=== PATIENT | female | born 1970 | race Caucasian/White ===

== ENCOUNTER → 2019-07-08 | Outpatient (CLI) | payer OTHER ==
--- NOTE | 2019-07-08 15:48 | NM ---
EXAMINATION TYPE: NM hepatobiliary w EF DATE OF EXAM: 07/08/2019 COMPARISON: None HISTORY: Right upper quadrant pain TECHNIQUE: After the intravenous administration of 3.08 mCi Tc 99m Mebrofenin hepatobiliary scintigra phy is performed. Immediate images post injection. FINDINGS: There is satisfactory initial accumulation of tracer by the liver. The gallbladder is visualized wit hin 6 minutes. The small bowel activity is noted within 52 minutes. At one hour 8 ounces of oral en sure plus is given to mimic CCK and gallbladder ejection fraction is calculated at 22 %, in the missael l range. Therefore there is no scintigraphic evidence of cystic or common bile duct obstruction to s uggest acute cholecystitis or gallbladder dyskinesia. IMPRESSION: Exam is within normal limits.
== END | disposition home or self-care (01) ==
LOC: RADNMMAIN 12:35
PROVIDERS: ATTEND Family Medicine
DX: R10.11 Right upper quadrant pain (principal)
CPT/HCPCS: 78226; A9537

== ENCOUNTER 2021-07-17 10:31 | Observation (INO) | payer OTHER ==
[2021-07-17 11:22] LABS: Basophils # (A) 0.1 k/uL (0-0.2); Basophils % (A) 1 %; Eosinophils # (A) 0.3 k/uL (0-0.7); Eosinophils % (A) 4 %; HGB 13.6 gm/dL (11.4-16.0); Lymphocytes # (A) 2.3 k/uL (1.0-4.8); Lymphocytes % (A) 36 %; MCH 29.8 pg (25.0-35.0); MCHC 31.7 g/dL (31.0-37.0); MCV 94.2 fL (80.0-100.0); Mean Platelet Volume 7.4; Monocytes # (A) 0.4 k/uL (0-1.0); Monocytes % (A) 6 %; Neutrophils # (A) 3.2 k/uL (1.3-7.7); Neutrophils % (A) 50 %; Platelet Count 335 k/uL (150-450); RBC 4.56 m/uL (3.80-5.40); RDW 12.4 % (11.5-15.5); WBC 6.5 k/uL (3.8-10.6)
[2021-07-17] MEDS ORDERED: ASPIRIN 81 MG PO STA (11:28)
--- NOTE | 2021-07-17 11:29 | ED ---
General Adult HPI - General Chief complaint: Chest Pain Stated complaint: Chest Pain Time Seen by Provider: 07/17/21 10:44 Source: patient Mode of arrival: wheelchair Limitations: no limitations - History of Present Illness Initial comments: Dictation was produced using [employer] dictation software. please excuse any grammatical, word or spelling errors. Chief Complaint: 50-year-old female with extensive family history of cardiac disease presents to the emergency department for chest pain History of Present Illness: 50-year-old female she presents emergency department for 3 days of chest pressure. Patient states that over the last few days she had a pressure in her chest that radiated to her back. No numbness and paresthesias to the extremities. Patient denies any history of blood clot. Denies any calf tenderness. She does complain of shortness of breath. 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 Patient denies any relation to her jaw. No associated nausea. She takes has extensive family history of cardiac disease. Mother was diagnosed with coronary artery disease and heart conditions at around the same age as the patient. She denies any symptoms at this time. The ROS documented in this emergency department record has been reviewed and confirmed by me. Those systems with pertinent positive or negative responses have been documented in the HPI. All other systems are other negative and/or noncontributory. PHYSICAL EXAM: General Impression: Alert and oriented x3, not in acute distress HEENT: Normocephalic atraumatic, extra-ocular movements intact, pupils equal and reactive to light bilaterally, mucous membranes moist. Cardiovascular: Heart regular rate and rhythm Chest: Able to complete full sentences, no retractions, no tachypnea Abdomen: abdomen soft, non-tender, non-distended, no organomegaly Musculoskeletal: Pulses present and equal in all extremities, no peripheral edema Motor: no focal deficits noted Neurological: CN II-XII grossly intact, no focal motor or sensory deficits noted Skin: Intact with no visualized rashes Psych: Normal affect and mood ED course: 50-year-old female presents to the emergency department for chest pressure concerning for ACS. Vital signs upon arrival are within acceptable limits. Patient is high risk due to family history. EKG shows no ischemia but does show right bundle branch block. No old EKG for comparison. Patient is asymptomatic at the bedside. Laboratory evaluation obtained. CBC is unremarkable. Coag panel is negative. D-dimer is below the age-adjusted level. Metabolic panel and first troponin is negative. Chest x-ray is nonacute. Patient remained at bedside at 1:30 PM vitamin stable medical condition. Patient is high risk due to strong family history. Patient is agreeable for admission for suture troponins, cardiac monitoring and cardiology consultation. Patient will be admitted to Dr. Bill's service. EKG interpretation: Ventricular rate 67, sinus rhythm, right bundle branch bloc k,. 129, QRS 127, QTc 444. No IN prolongation, no QTC prolongation, no ST or T- wave changes noted. . Overall, this EKG is unremarkable - Related Data Allergies Allergy/AdvReac Type Severity Reaction Status Date / Time No Known Allergies Allergy Verified 07/17/21 10:43 Review of Systems ROS Statement: Those systems with pertinent positive or pertinent negative responses have been documented in the HPI. ROS Other: All systems not noted in ROS Statement are negative. Past Medical History Additional Past Medical History / Comment(s): migraine History of Any Multi-Drug Resistant Organisms: None Reported Past Surgical History: Hysterectomy, Orthopedic Surgery Past Psychological History: No Psychological Hx Reported Smoking Status: Never smoker Past Alcohol Use History: Occasional Past Drug Use History: None Reported General Exam Limitations: no limitations Course Vital Signs 07/17/21 07/17/21 07/17/21 10:41 11:00 13:00 Temperature 97.9 F Pulse Rate 70 68 72 Respiratory 16 18 18 Rate Blood Pressure 139/84 140/90 142/92 O2 Sat by Pulse 100 99 97 Oximetry Medical Decision Making - Lab Data Result diagrams: 07/17/21 11:13 07/17/21 11:37 Lab Results 07/17/21 07/17/21 07/17/21 Range/Units 11:13 11:13 11:37 WBC 6.5 (3.8-10.6) k/uL RBC 4.56 (3.80-5.40) m/uL Hgb 13.6 (11.4-16.0) gm/dL Hct 43.0 (34.0-46.0) % MCV 94.2 (80.0-100.0) fL MCH 29.8 (25.0-35.0) pg MCHC 31.7 (31.0-37.0) g/dL RDW 12.4 (11.5-15.5) % Plt Count 335 (150-450) k/uL MPV 7.4 Neutrophils % 50 % Lymphocytes % 36 % Monocytes % 6 % Eosinophils % 4 % Basophils % 1 % Neutrophils # 3.2 (1.3-7.7) k/uL Lymphocytes # 2.3 (1.0-4.8) k/uL Monocytes # 0.4 (0-1.0) k/uL Eosinophils # 0.3 (0-0.7) k/uL Basophils # 0.1 (0-0.2) k/uL PT 9.9 (9.0-12.0) sec INR 0.9 (<1.2) APTT 23.1 (22.0-30.0) sec D-Dimer 0.20 (<0.60) mg/L FEU Sodium (137-145) mmol/L Potassium (3.5-5.1) mmol/L Chloride (98-107) mmol/L Carbon Dioxide (22-30) mmol/L Anion Gap mmol/L BUN (7-17) mg/dL Creatinine (0.52-1.04) mg/dL Est GFR (CKD-EPI)AfAm (>60 ml/min/1.73 sqM) Est GFR (CKD-EPI)NonAf (>60 ml/min/1.73 sqM) Glucose (74-99) mg/dL Calcium (8.4-10.2) mg/dL Troponin I <0.012 (0.000-0.034) ng/mL 07/17/21 Range/Units 11:37 WBC (3.8-10.6) k/uL RBC (3.80-5.40) m/uL Hgb (11.4-16.0) gm/dL Hct (34.0-46.0) % MCV (80.0-100.0) fL MCH (25.0-35.0) pg MCHC (31.0-37.0) g/dL RDW (11.5-15.5) % Plt Count (150-450) k/uL MPV Neutrophils % % Lymphocytes % % Monocytes % % Eosinophils % % Basophils % % Neutrophils # (1.3-7.7) k/uL Lymphocytes # (1.0-4.8) k/uL Monocytes # (0-1.0) k/uL Eosinophils # (0-0.7) k/uL Basophils # (0-0.2) k/uL PT (9.0-12.0) sec INR (<1.2) APTT (22.0-30.0) sec D-Dimer (<0.60) mg/L FEU Sodium 139 (137-145) mmol/L Potassium 4.1 (3.5-5.1) mmol/L Chloride 105 (98-107) mmol/L Carbon Dioxide 26 (22-30) mmol/L Anion Gap 8 mmol/L BUN 9 (7-17) mg/dL Creatinine 0.68 (0.52-1.04) mg/dL Est GFR (CKD-EPI)AfAm >90 (>60 ml/min/1.73 sqM) Est GFR (CKD-EPI)NonAf >90 (>60 ml/min/1.73 sqM) Glucose 101 H (74-99) mg/dL Calcium 8.9 (8.4-10.2) mg/dL Troponin I (0.000-0.034) ng/mL Disposition Clinical Impression: Chest pain Disposition: ADMITTED IP TO THIS HOSP Condition: Fair Referrals: Ayan Valle MD [Primary Care Provider] - 1-2 days
--- NOTE | 2021-07-17 11:42 | XR ---
EXAMINATION TYPE: XR chest 1V portable DATE OF EXAM: 07/17/2021 COMPARISON: NONE HISTORY: Chest pain TECHNIQUE: Single frontal view of the chest is obtained. FINDINGS: There is no focal air space opacity, pleural effusion, or pneumothorax seen. The cardiac silhouette size is within normal limits. The osseous structures are intact. IMPRESSION: No acute process.
[2021-07-17 11:58] LABS: African American GFR (CKD) >90 (>60 ml/min/1.73 sqM); Anion Gap 8 mmol/L; Blood Urea Nitrogen 9 mg/dL (7-17); Calcium 8.9 mg/dL (8.4-10.2); Carbon Dioxide 26 mmol/L (22-30); Chloride 105 mmol/L (98-107); Glucose 101 mg/dL (74-99); Non-African American GFR(CKD) >90 (>60 ml/min/1.73 sqM); Potassium 4.1 mmol/L (3.5-5.1); Sodium 139 mmol/L (137-145)
[2021-07-17 12:10] LABS: INR 0.9 (<1.2); Partial Thromboplastin Time 23.1 sec (22.0-30.0); Prothrombin Time 9.9 sec (9.0-12.0)
[2021-07-17] MEDS ORDERED: NITROGLYCERIN SL TABS 0.4 MG TAB SUBLINGUAL PRN (13:33)
--- NOTE | 2021-07-17 17:13 | P.HPIM ---
History of Present Illness H&P Date: 07/17/21 Chief Complaint: Chest pressure This is a 50-year-old patient, follows with Dr. Ayan Valle. Patient's premature good health. Rather active. 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 Patient for last 40 days been having pain across the chest. Mainly with activity. Feels like a pressure. But at rest. Does not radiate anywhere. Some associated shortness of breath. No dizziness no lightheadedness. Does feel tired all the time. No lower extremity. No cough no fever no chills. No prior cardiac history. Has a cardiac history has decided to come in. Patient is on a beta jay for headaches described as possible migraines. Review of systems: GEN.: None EYES: None HEENT: None NECK: None RESPIRATORY: None CARDIOVASCULAR: As above GASTROINTESTINAL: None GENITOURINARY: None MUSCULOSKELETAL: None LYMPHATICS: None HEMATOLOGICAL: None PSYCHIATRY: None NEUROLOGICAL: None Past medical history to include: Migraine Social history: . Alcohol occasionally. No smoking. No recreational drugs. Family history: CAD Physical examination: VITAL SIGNS: 97.9, 76, 16, 116/72, 98% room air GENERAL: BMI 32.6 reclining bed, awake, not in distress. EYES: Pupils equal. Conjunctiva normal. HEENT: External appearance of nose and ears normal, oral cavity grossly normal. NECK: JVD not raised; masses not palpable. HEART: First and second heart sounds are normal; no edema. LUNGS: Respiratory rate normal; clear to auscultation. ABDOMEN: Soft, nontender, liver spleen not palpable, no masses palpable. PSYCH: Alert and oriented x3; mood and affect normal. MUSCULOSKELETAL:No Clubbing/cyanosis;muscles-grossly intact NEUROLOGICAL: Cranial nerves grossly intact; no facial asymmetry, power and sensation grossly intact. LYMPHATICS: No lymph nodes palpable in the axilla and neck INVESTIGATIONS, reviewed in the clinical context: White count 6.5 hemoglobin 13.6 platelets 335 sodium 139 potassium 4.1 BUN 9 creatinine 0.68 Troponin I is less than 0.012 EKG tracing personally reviewed by me-right bundle-branch block. Sinus rhythm Chest x-ray film personally reviewed by me-lungs clear. Assessment and plan: -Anterior chest wall pain with some cardiac features. Positive family history. Negative troponin. EKG nonspecific. Patient will need a stress test. Currently consulted. Aspirin. -Right bundle-branch block -Obesity BMI 32.6 Patient placement aspirin. Telemetry. Cardiology consulted. Care was discussed with the patient has been the bedside. Questions answered. Past Medical History Additional Past Medical History / Comment(s): migraine History of Any Multi-Drug Resistant Organisms: None Reported Past Surgical History: Hysterectomy, Orthopedic Surgery Past Psychological History: No Psychological Hx Reported Smoking Status: Never smoker Past Alcohol Use History: Occasional Past Drug Use History: None Reported Medications and Allergies Home Medications Medication Instructions Recorded Confirmed Type Propranolol HCl 80 mg PO DAILY 07/17/21 07/17/21 History Allergies Allergy/AdvReac Type Severity Reaction Status Date / Time No Known Allergies Allergy Verified 07/17/21 13:41 Physical Exam Vitals: Vital Signs Temp Pulse Resp BP Pulse Ox 07/17/21 16:45 76 16 116/72 98 07/17/21 13:00 72 18 142/92 97 07/17/21 11:00 68 18 140/90 99 07/17/21 10:41 97.9 F 70 16 139/84 100 Intake and Output 07/17/21 07/17/21 07/17/21 06:59 14:59 22:59 Other: Weight 86.183 kg Results CBC & Chem 7: 07/17/21 11:13 07/17/21 11:37 Labs: Abnormal Lab Results - Last 24 Hours (Table) 07/17/21 Range/Units 11:37 Glucose 101 H (74-99) mg/dL
[2021-07-17 17:24] VITALS: RESP 18
[2021-07-18 07:19] VITALS: BP 114/69; PULSE 71; TEMP 97.6
[2021-07-18] MEDS ORDERED: ASPIRIN 325 MG TAB PO SCH (09:00)
--- NOTE | 2021-07-18 09:42 | P.CRDCN ---
History of Present Illness History of present illness: HISTORY OF PRESENTING ILLNESS This is a pleasant 50-year-old female past medical history significant for migraines, significant family history of coronary artery disease. She does not follow with cuff knitter. We have been asked to see in consultation for chest pain. Patient presents emergency department with complaints of midsternal chest heaviness and pain since 07/14/21. Exertional and aggravated by activity. Radiating to her back in between her shoulder blades. She states it would last a few hours and would be relived with rest. She had associated shortness of breath and some lightheadedness. She denies any nausea, vomiting, diaphoresis, palpitations. She denies any syncope or near syncope. She denies any symptoms of orthopnea or PND. Denies history of CAD, NC, Stroke, Diabetes or hypertension or hyperlipidemia. She is a non/never smoker. Family history includes maternal and paternal grandparents both with MIs in 60-70s, Mother with valve abnormalities. She states she has never had a stress test in the past. DIAGNOSTICS EKG reveals sinus rhythm, heart rate 67, right bundle-branch block, T wave inversion in lead III. No prior EKG to compare. EKG this morning with similar findings Telemetry tracings indicate sinus rhythm heart rate in the 60s Chest xray no acute cardio pulmonary process Laboratory reviewed, troponin negative 3, d-dimer negative, CBC unremarkable, sodium 139, potassium 4.1, BUN 9, serum creatinine 0.6 Current home medications include propanolol 80 mg daily that she takes for migraines REVIEW OF SYSTEMS At the time of my exam: CONSTITUTIONAL: Denies fever or chills. CARDIOVASCULAR: Denies chest pain, shortness of breath, orthopnea, PND or palpitations. RESPIRATORY: Denies cough. GASTROINTESTINAL: Denies abdominal pain, diarrhea, constipation, nausea or vomiting. MUSCULOSKELETAL: Denies myalgias. NEUROLOGIC: Denies numbness, tingling, headache or weakness. ENDOCRINE: Denies fatigue, weight change, polydipsia or polyurina. GENITOURINARY: Denies burning, hematuria or urgency with micturation. HEMATOLOGIC: Denies history of anemia or bleeding. PHYSICAL EXAMINATION Blood pressure 114/69, heart rate 71, afebrile, saturation 97% on room air CONSTITUTIONAL: No apparent distress. HEENT: Head is normocephalic. Pupils are equal, round. Sclerae anicteric. Mucous membranes of the mouth are moist. No JVD. No carotid bruit. CHEST EXAMINATION: Lungs are clear to auscultation. No chest wall tenderness is noted on palpation or with deep breathing. HEART EXAMINATION: Regular rate and rhythm. S1, S2 heard. No murmurs, gallops or rub. ABDOMEN: Soft, nontender. Positive bowel sounds. EXTREMITIES: 2+ peripheral pulses, no lower extremity edema and no calf tenderness. SKIN: Warm, dry NEUROLOGIC EXAMINATION: Patient is awake, alert and oriented x3. ASSESSMENT Chest pain, atypical, acute coronary syndrome has been ruled out History of migraines Family history of coronary disease PLAN An acute coronary event has been ruled out with no EKG evidence of ischemia and negative cardiac enzymes. Obtain 2D echocardiogram and doppler study to assess cardiac structure and function. Perform stress echocardiogram test to assess for stress induced cardiac ischemia. If abnormal will consider coronary angiography. If stress test is normal and no evidence of reversible ischemia. Patient may be discharged from cardiology perspective Thank you kindly for this consultation. Nurse practitioner note has been reviewed by physician. Signing provider agrees with the documented findings, assessment, and plan of care. Past Medical History Additional Past Medical History / Comment(s): migraine History of Any Multi-Drug Resistant Organisms: None Reported Past Surgical History: Hysterectomy, Orthopedic Surgery Past Anesthesia/Blood Transfusion Reactions: No Reported Reaction Past Psychological History: No Psychological Hx Reported Smoking Status: Never smoker Past Alcohol Use History: Occasional Past Drug Use History: None Reported Medications and Allergies Home Medications Medication Instructions Recorded Confirmed Type Propranolol HCl 80 mg PO DAILY 07/17/21 07/17/21 History Allergies Allergy/AdvReac Type Severity Reaction Status Date / Time No Known Allergies Allergy Verified 07/17/21 13:41 Physical Exam Vitals: Vital Signs Temp Pulse Pulse Pulse Resp BP BP 07/18/21 01:56 97.8 F 68 18 118/68 07/17/21 19:11 98.1 F 68 18 115/77 07/17/21 17:22 97.8 F 71 18 127/80 07/17/21 16:45 76 16 116/72 07/17/21 13:00 72 18 142/92 07/17/21 11:00 68 18 140/90 07/17/21 10:41 97.9 F 70 16 139/84 Pulse Ox 07/18/21 01:56 98 07/17/21 19:11 97 07/17/21 17:22 100 07/17/21 16:45 98 07/17/21 13:00 97 07/17/21 11:00 99 07/17/21 10:41 100 Intake and Output 07/17/21 07/18/21 07/18/21 22:59 06:59 14:59 Intake Total 118 Balance 118 Intake: Oral 118 Other: # Voids 1 1 Weight 86.183 kg Results 07/17/21 11:13 07/17/21 11:37 Cardiac Enzymes 07/17/21 07/17/21 07/17/21 Range/Units 11:37 15:12 19:05 Troponin I <0.012 <0.012 <0.012 (0.000-0.034) ng/mL Coagulation 07/17/21 Range/Units 11:13 PT 9.9 (9.0-12.0) sec APTT 23.1 (22.0-30.0) sec CBC 07/17/21 Range/Units 11:13 WBC 6.5 (3.8-10.6) k/uL RBC 4.56 (3.80-5.40) m/uL Hgb 13.6 (11.4-16.0) gm/dL Hct 43.0 (34.0-46.0) % Plt Count 335 (150-450) k/uL Comprehensive Metabolic Panel 07/17/21 Range/Units 11:37 Sodium 139 (137-145) mmol/L Potassium 4.1 (3.5-5.1) mmol/L Chloride 105 (98-107) mmol/L Carbon Dioxide 26 (22-30) mmol/L BUN 9 (7-17) mg/dL Creatinine 0.68 (0.52-1.04) mg/dL Glucose 101 H (74-99) mg/dL Calcium 8.9 (8.4-10.2) mg/dL Current Medications Generic Name Dose Route Start Last Admin Trade Name Freq PRN Reason Stop Dose Admin Aspirin 325 mg 07/18/21 09:00 Aspirin 325 Mg Tab PO DAILY JUANPABLO Nitroglycerin 0.4 mg 07/17/21 13:33 Nitroglycerin Sl Tabs 0.4 Mg Tab SUBLINGUAL Q5M PRN Chest Pain Intake and Output 07/17/21 07/18/2107/18/22 22:59 06:59 14:59 Intake Total 118 Balance 118 Intake: Oral 118 Other: # Voids 1 1 Weight 86.183 kg 07/17/21 11:13 07/17/21 11:37
[2021-07-18 10:28] LABS: Chol/HDL Ratio 2.71 Ratio; LDL Cholesterol,Calculated 83.1 mg/dL (0.0-131.0)
--- NOTE | 2021-07-18 11:08 | P.STRESS ---
- Stress Test Note Stress Test Results/Findings: Exam Performed: stress echo exercise Exam Date: 07/18/21 Reason for Exam: CP Height: 5 ft 4 in Weight: 86.18 kg Protocol: KENYA Stage: 3 Duration of Exercise: 7 MIN Resting Heart Rate: 68 Resting Blood Pressure: 126/74 Maximum Achieved Heart Rate: 172 Maximum Achieved Blood Pressure: 204/100 85% PMHR: 145 100% PMHR: 170 METS: 6.3 Technologist Comment: Stress Test Results/Findings: This is a 50-year-old female who was admitted to the hospital with complaints of chest pain with exertion associated with shortness of breath and palpitation. Stress data: Baseline EKG showed sinus rhythm with evidence of right bundle- branch block. Her blood pressure at rest is 126/74 with pulse rate of 68. Patient walked on the [place] protocol for about 7 minutes achieving a maximum heart rate of 171 with a peak blood pressure about 136/80. EKGs taken during and after exercise did not reveal any changes of ischemia. Patient did not experience any chest pain. Echo data: Baseline echo images show normal wall motion and thickening. Exercise echo images showed augmentation of wall motion and thickening in all segments. Final impression: #1. Negative stress test #2. Negative stress echo
--- NOTE | 2021-07-18 12:01 | ECHOF ---
Referral Reason:chest pain MEASUREMENTS -------- HEIGHT: 162.6 cm WEIGHT: 86.2 kg BP: IVSd: 1.2 cm (0.6 - 1.1) LVIDd: 3.5 cm (3.9 - 5.3) LVPWd: 1.3 cm (0.6 - 1.1) IVSs: 1.6 cm LVIDs: 2.1 cm LVPWs: 1.9 cm LAESV Index (A-L): 17.46 ml/m Ao Diam: 3.1 cm (2.0 - 3.7) AV Cusp: 1.7 cm (1.5 - 2.6) LA Diam: 2.8 cm (2.7 - 3.8) MV EXCURSION: 17.007 mm (> 18.000) MV EF SLOPE: 91 mm/s (70 - 150) EPSS: 0.5 cm MV E Deion: 0.80 m/s MV DecT: 260 ms MV A Deion: 0.51 m/s MV E/A Ratio: 1.56 AV maxP.88 mmHg AV meanP.83 mmHg RAP: 5.00 mmHg RVSP: 9.20 mmHg FINDINGS -------- This was a technically good study. The left ventricular size is normal. There is mild concentric left ventricular hypertrophy. Overa ll left ventricular systolic function is normal with, an EF between 55 - 60 %. The diastolic fillin g pattern is normal for the age of the patient 8.29. The right ventricle is normal in size. The left atrial size is normal. Normal LA size by volume 22+/-6 ml/m2. The right atrial size is normal. Aortic valve is trileaflet and is mildly thickened. Peak/mean gradient across the Aortic Valve is 1 4.88mmHg / 6.83mmHg. AOV is possible Bicuspid. The mitral valve is normal. There is trace mitral regurgitation. The tricuspid valve appears structurally normal. Trace tricuspid regurgitation present. Right scott tricular systolic pressure is normal at < 35 mmHg. There is no pulmonic regurgitation present. There is no pericardial effusion. CONCLUSIONS -------- 1. The left ventricular size is normal. 2. There is mild concentric left ventricular hypertrophy. 3. Overall left ventricular systolic function is normal with, an EF between 55 - 60 %. 4. The diastolic filling pattern is normal for the age of the patient 8.29 5. Aortic valve is trileaflet and is mildly thickened. 6. Peak/mean gradient across the Aortic Valve is 14.88mmHg / 6.83mmHg. 7. AOV is possible Bicuspid. 8. There is trace mitral regurgitation. 9. Trace tricuspid regurgitation present. 10. There is no pericardial effusion. SOFTWARE ENGINEER: Racheal Way RDCS
--- NOTE | 2021-07-18 18:06 | P.DS ---
Providers Date of admission: 07/17/21 13:33 Expected date of discharge: 07/18/21 Attending physician: Dl Bill Consults: 07/17/21 13:33 Consult Physician Urgent Consulting Provider: Laura Sterling Consult Reason/Comments: chest pain Do you want consulting provider notified?: Yes Primary care physician: [facility] Course: Chief Complaint: Chest pressure This is a 50-year-old patient, follows with Dr. Ayan Valle. Patient's premature good health. Rather active. 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 Patient for last 40 days been having pain across the chest. Mainly with activity. Feels like a pressure. But at rest. Does not radiate anywhere. Some associated shortness of breath. No dizziness no lightheadedness. Does feel tired all the time. No lower extremity. No cough no fever no chills. No prior cardiac history. Has a cardiac history has decided to come in. Patient is on a beta jay for headaches described as possible migraines. July 18: Patient underwent a stress echocardiogram. Negative for ischemia. Cleared by currently for discharge. Care was discussed with the patient. Possibly skeletal. If pain is to come back again patient to come back to the ER. Past medical history to include: Migraine Social history: . Alcohol occasionally. No smoking. No recreational drugs. Family history: CAD Physical examination: VITAL SIGNS: 97.6, 71, 18, 114/69, 97% room air GENERAL: Sitting up, comfortable EYES: Pupils equal. Conjunctiva normal. HEENT: External appearance of nose and ears normal, oral cavity grossly normal. NECK: JVD not raised; masses not palpable. HEART: First and second heart sounds are normal; no edema. LUNGS: Respiratory rate normal; clear to auscultation. ABDOMEN: Soft, nontender, liver spleen not palpable, no masses palpable. PSYCH: Alert and oriented x3; mood and affect normal. MUSCULOSKELETAL:No Clubbing/cyanosis;muscles-grossly intact INVESTIGATIONS, reviewed in the clinical context: Stress echocardiogram: Negative for ischemia 2-D echocardiogram: EF 55-60%. AOV is possible bicuspid White count 6.5 hemoglobin 13.6 platelets 335 sodium 139 potassium 4.1 BUN 9 creatinine 0.68 Troponin I is less than 0.012 EKG tracing personally reviewed by nd-right bundle-branch block. Sinus rhythm Chest x-ray film personally reviewed by me-lungs clear. Assessment and plan: -Anterior chest wall pain possibly musculoskeletal. Negative troponin. Negative stress echocardiogram -Right bundle-branch block -Obesity BMI 32.6 -Bicuspid aortic valve Disposition: Home Plan - Discharge Summary Discharge Rx Participant: No New Discharge Prescriptions: Continue Propranolol HCl 80 mg PO DAILY Discharge Medication List Propranolol HCl 80 mg PO DAILY 07/17/21 [History] Follow up Appointment(s)/Referral(s): cardiology, [Other] - 6 Weeks Ayan Valle MD [Primary Care Provider] - 1-2 days Patient Instructions/Handouts: Chest Pain (DC), Stress Echocardiogram (DC) Activity/Diet/Wound Care/Special Instructions: activity as tolerated heart healthy diet as tolerated stress test 07/18/21-negative Discharge Disposition: HOME SELF-CARE
[2021-07-19] MEDS ORDERED: ASPIRIN 81 MG PO SCH (09:00)
== END 2021-07-18 14:27 | disposition home or self-care (01) ==
LOC: EC 10:31 → 6NMEDSUR 13:33
PROVIDERS: ADMIT Hospitalist; ATTEND Hospitalist
DX: R07.89 Other chest pain (principal); Q23.1 Congenital insufficiency of aortic valve; I45.10 Unspecified right bundle-branch block; G43.909 Migraine, unspecified, not intractable, without status migrainosus; Z68.32 Body mass index [BMI] 32.0-32.9, adult; E66.9 Obesity, unspecified; Z79.899 Other long term (current) drug therapy; Z90.710 Acquired absence of both cervix and uterus; Z98.890 Other specified postprocedural states; Z82.49 Family history of ischemic heart disease and other diseases of the circulatory system
CPT/HCPCS: 99285; 36415; 93005; 93306; 93351; 85379; 80061; 80048; 84484; 85025; 85610; 85730; 71045; G0378 ×2

== ENCOUNTER → 2024-03-06 | Outpatient (CLI) | payer OTHER ==
--- NOTE | 2024-03-07 08:22 | MM ---
Reason for Exam: Screening (asymptomatic). Last mammogram was performed 7 year(s) and 0 month(s) ago. Patient History: Menarche at age 13. First Full-Term at age 23. Hysterectomy at age 36. Risk Values: Mae 5 year model risk: 1.0%. NCI Lifetime model risk: 7.7%. Prior Study Comparison: 03/09/2017 Bilateral Screening Mammogram, [facility]. Tissue Density: There are scattered areas of fibroglandular density. Findings: Analyzed By CAD. Right breast: There is no suspicious group of microcalcifications or new suspicious mass. Left breast: There is no suspicious group of microcalcifications or new suspicious mass. Overall Assessment: Negative, BI-RAD 1 Management: Screening Mammogram of both breasts in [address] [facility] will attempt to contact patient to return for supplemental views and ultrasound if indicated. Patient should continue monthly self-breast exams. A clinical breast exam by your physician is recommended on an annual basis. This exam should not preclude additional follow-up of suspicious palpable abnormalities. Note on Mae scores and lifetime risk: 1. A Mae score greater than 3% is considered moderate risk. If this is the case, consider specialist referral to assess eligibility for a risk reducing agent. 2. If overall lifetime risk for the development of breast cancer is 20% or higher, the patient may qualify for future screening with alternating mammogram and breast MRI. [facility], , 03/07/2024 8:19 AM. Electronically signed and approved by: Ayan Hicks DO
== END | disposition home or self-care (01) ==
LOC: RADMAMWWP 15:13
PROVIDERS: ATTEND Family Medicine
CPT/HCPCS: 77067